=== PATIENT | male | born 1940 | race Caucasian/White ===

== ENCOUNTER → 2016-10-05 | Outpatient (CLI) | payer MEDICARE, BC ==
[~2016-10-05] MED LIST: ASPIRIN PO; FISH OIL 1,0001 CAP PO; LIPITOR PO; MAIL ORDER PHARMACY; MULTI-VITAMIN1 TAB PO; NORVASC PO; OMEPRAZOLE20 M1 PO; TOPROL XL PO
--- NOTE | ~2016-10-05 | US10 ---
[id number] [facility] [address] [place], [place] [address] [id number] O MR#: [id number] [facility] #: [id number] NAME: DORON FAGAN : 1940 SEX: M STUDY DATE/TIME: 10/05/2016 8:49 UNIT: CGUS ROOM: STUDY DESCRIPTION: US Aorta Complete Attending Physician: Joe Davila Jr., M.D. Referring Physician: Joe Davila Jr., M.D. Ordering Physician: Joe Davila Jr., M.D. Primary Care Physician: Joe Davila Jr., M.D. MEDICAL IMAGING REPORT This report is preliminary unless electronic signature is present EXAM Ultrasound of the abdominal aorta with color-flow Doppler 10/05/2016 HISTORY Outside examination MRI revealed abdominal aortic aneurysm. Ultrasound was recommended for further evaluation, abdominal aortic aneurysm screening, peripheral vascular disease. Smoking history for 40 years, quit 6 years ago. FINDINGS Love-scale images of the abdominal aorta were obtained as well as Doppler waveform spectral analysis and color-flow Doppler imaging. The proximal and midportions of the abdominal aorta measured 2.2 cm and 2.8 cm respectively. There is mild aneurysmal dilatation of the distal abdominal aorta measuring 3 cm x 2.2 cm. The right and left common iliac arteries were obscured by bowel gas. If this is an area of clinical concern, consider correlation with CT angiogram of the abdominal aorta. Moderate atherosclerotic plaque is seen within the abdominal aorta. Color-flow Doppler images show normal blood flow throughout the abdominal aorta. IMPRESSION 1. Mild aneurysmal dilatation of the distal abdominal aorta to 3 cm. Moderate atherosclerotic plaque was seen within the abdominal aorta. 2. Exam is somewhat limited as the common iliac arteries were obscured bilaterally by bowel gas. If this is an area of clinical concern, consider CT angiogram of the abdominal aorta with contrast. Dictated by... Zain Stovall M.D. THIS IS AN ELECTRONICALLY VERIFIED REPORT Zain Stovall M.D. at 10/06/2016 8:26 AM MARION/caroline TD: 10/05/2016 08:39 JOB #: [id number] MEDICAL IMAGING REPORT Page 1 of 1 COPY
== END | disposition home or self-care (01) ==
LOC: CGUS 07:14
DX: Z13.6 Encounter for screening for cardiovascular disorders (principal); I71.4 Abdominal aortic aneurysm, without rupture; I70.0 Atherosclerosis of aorta
CPT/HCPCS: 76770

== ENCOUNTER → 2017-01-28 | Outpatient (CLI) | payer MEDICARE, BC ==
--- NOTE | ~2017-01-28 | US37 ---
[facility] A Service of [facility] RADIOLOGY TEXT RESULTS PATIENT: DORON FAGAN LOCATION: CNIV : 38 UNIT #: [id number] AGE: [address]: Joe Davila MD SEX: M ORDER DR: [id number] [facility] [address] [place], [place] [address] [id number] O MR#: [id number] Acc #: [id number] NAME: DORON FAGAN : 1940 SEX: M STUDY DATE/TIME: 01/28/2017 12:42 UNIT: CNIV ROOM: STUDY DESCRIPTION: US Carotid W/Doppler Bilateral Attending Physician: Joe Davila Jr., M.D. Referring Physician: Joe Davila Jr., M.D. Ordering Physician: Joe Davila Jr., M.D. Primary Care Physician: Joe Davila Jr., M.D. MEDICAL IMAGING REPORT This report is preliminary unless electronic signature is present EXAM Bilateral carotid duplex HISTORY Asymptomatic carotid artery stenosis. FINDINGS Duplex imaging of the carotid arteries was performed. The right common carotid artery is patent. Plaque is seen at the distal common carotid artery extending into the internal and external carotid arteries. The plaque is heterogeneous and hypoechoic and irregular. Velocity in the right common carotid is 62 cm/sec, internal is increased to 192 by 57 proximally, 217 by 69 midportion, and 89 by 30 cm/sec distally. Right ICA:CCA ratio is 3.1. External carotid velocity is 72 cm/sec. On the left side, the common carotid artery is patent with plaque. Heterogeneous irregular plaque is seen at the origins of the internal and external carotid arteries. Velocity in the left common carotid is 93, internal is 97, and external is 211 cm/sec. Left ICA:CCA ratio is 1.2. Antegrade flow is seen in the right and left vertebral arteries. IMPRESSION 1. Significant plaque with 50-69% stenosis seen in the right internal carotid artery. 2. Plaque with less than 50% stenosis is seen in the left internal carotid artery. 3. Antegrade flow is seen in the right and left vertebral arteries. Dictated by... [facility] A Service of [facility] RADIOLOGY TEXT RESULTS PATIENT: DORON FAGAN LOCATION: CNIV : 39 UNIT #: [id number] AGE: [address]: Joe Davila MD SEX: M ORDER DR: Jose Antonio Merchant M.D. THIS IS AN ELECTRONICALLY VERIFIED REPORT Jose Antonio Merchant M.D. at 02/01/2017 4:04 PM SA/swathi TD: 01/28/2017 20:22 JOB #: [id number] MEDICAL IMAGING REPORT Page 1 of 1 COPY
== END | disposition home or self-care (01) ==
LOC: CNIV 11:52
DX: I65.23 Occlusion and stenosis of bilateral carotid arteries (principal)
CPT/HCPCS: 93880